=== PATIENT | female | born 1975 | race Two or more races ===

== ENCOUNTER 2018-06-08 19:01 | Emergency (ER) | payer OTHER ==
[~2018-06-08] VITALS: Ht 165.1 cm; Wt 86.2 kg
[2018-06-08] MEDS ORDERED: IBUP200C5 PO (19:10)
--- NOTE | 2018-06-08 19:33 | NUR ---
Patient discharged to home in stable conditon. Written and verbal after care instructions given. Patient verbalizes understanding of instructions. Walked out of ER with no distress noted
== END 2018-06-08 19:37 | disposition home or self-care (01) ==
LOC: ER 19:06
DX: J02.8 Acute pharyngitis due to other specified organisms (principal); B97.89 Other viral agents as the cause of diseases classified elsewhere
CPT/HCPCS: A4663

== ENCOUNTER 2020-06-18 01:42 | Emergency (ER) | payer MEDICAID, OTHER ==
[~2020-06-18] VITALS: Ht 162.6 cm; Wt 90.7 kg
[~2020-06-18 01:42] MED LIST: IBUP200C5 PO
--- NOTE | 2020-06-18 01:45 | NUR ---
Dr. Hurley at bedside for MSE.
[2020-06-18] MEDS ORDERED: ACETAMINOPHEN 325 MG TABLET PO ONE (02:00)
[2020-06-18] MEDS ORDERED: ACETAMINOPHEN ES 500 MG TABLET ONE (02:06)
[2020-06-18 02:09] LABS: BASOPHILS % (AUTO) 0.1 % (0.0-2.0); HEMATOCRIT 27.4 % (31.2-41.9); LYMPHOCYTES # (AUTO) 0.6 K/uL (20.0-40.0); LYMPHOCYTES % (AUTO) 10.5 % (20.5-51.5); MEAN CORPUSCULAR HEMOGLOBIN 24.5 uug (24.7-32.8); MEAN CORPUSCULAR HGB CONC 33 g/dL (32.3-35.6); MEAN CORPUSCULAR VOLUME 74.2 fL (75.5-95.3); MONOCYTES # (AUTO) 0.2 K/uL (2.0-10.0); NEUTROPHILS # (AUTO) 4.9 K/uL (1.8-8.9); NEUTROPHILS % (AUTO) 86.4 % (38.5-71.5); PLATELET COUNT (AUTO) 187 K/uL (179-408); RED BLOOD CELL COUNT(AUTO) 3.69 MIL/uL (3.63-4.92); WHITE BLOOD COUNT (AUTO) 5.7 K/uL (3.8-11.8)
[2020-06-18] MEDS ORDERED: CEFTRIAXONE 1 G in IV DEXTROSE 5% 50 ML IV ONE (02:15)
[2020-06-18] MEDS ORDERED: CEFTRIAXONE 1 G VIAL ONE (02:20)
--- NOTE | 2020-06-18 02:20 | NUR ---
Pt provided urine sample, sent to lab.
[2020-06-18 02:28] LABS: BILIRUBIN,DIRECT 0.2 mg/dL (0.0-0.2); BILIRUBIN,TOTAL 0.4 mg/dL (0.2-1.0); CREATININE 0.8 mg/dL (0.6-1.3); POTASSIUM 3.9 mmol/L (3.5-5.1); TOTAL PROTEIN, SERUM 7.2 g/dL (6.4-8.2)
[2020-06-18 02:34] LABS: *BILIRUBIN,URIN NEGATIVE (NEGATIVE); *BLOOD, URINE 1+ (NEGATIVE); *CLARITY,URINE CLOUDY (CLEAR); *COLOR,URINE YELLOW (YELLOW); *KETONES,URINE NEGATIVE (NEGATIVE); *UROBILINOGEN,URINE 0.2 E.U./dl (NORMAL); LEUKOCYTE ESTERASE ,URINE 3+ (NEGATIVE); NITRITE, URINE NEGATIVE (NEGATIVE); PH,URINE 8.5 (5.0-8.0); UGLUCOSE NEGATIVE (NEGATIVE)
--- NOTE | 2020-06-18 02:39 | NUR ---
Pt out of ER for CT.
[2020-06-18 02:41] LABS: *URINE HCG, QUAL NEGATIVE (NEGATIVE); BACTERIA,URINE MODERATE /HPF (NONE SEEN); WBC,URINE 50-80 /HPF (0-3)
--- NOTE | 2020-06-18 02:53 | NUR ---
Pt back to ER from CT.
--- NOTE | 2020-06-18 04:18 | NUR ---
Patient discharged to home in stable condition. Written and verbal after care instructions given. Patient verbalizes understanding of instructions. Stressed follow up or return to ER for worsening s/s. Patient out of ER with steady gait, no acute signs of distress, VSS, all belongings taken, IV site discontinued, provided copies of diagnostic procedures.
[2020-06-18 04:19] VITALS: BP 111/58
== END 2020-06-18 04:20 | disposition home or self-care (01) ==
LOC: ER 01:44
DX: N12 Tubulo-interstitial nephritis, not specified as acute or chronic (principal); R00.0 Tachycardia, unspecified; D64.9 Anemia, unspecified
CPT/HCPCS: 36415; 74176; 80048; 80076; 81001; 83605; 83690; 84484; 84703; 85025; 87040 ×2; 87077 ×2; 87086; 87186 ×2; 93005; 96374; 99291; J0696; J7060; 70030-TC; A4663; A9150

== ENCOUNTER 2023-11-03 14:44 | Emergency (ER) | payer MEDICAID, OTHER ==
[~2023-11-03] VITALS: Ht 162.6 cm; Wt 88.5 kg
[2023-11-03] MEDS ORDERED: diphenhydrAMINE 50 MG/1 ML VIAL ONE (16:06)
[2023-11-03] MEDS ORDERED: METOCLOPRAMIDE HCL 10 MG/2 ML VIAL ONE (16:07)
[2023-11-03] MEDS ORDERED: KETOROLAC TROMETHAMINE 30 MG INJ ONE (16:07)
[2023-11-03 16:12] LABS: BASOPHILS % (AUTO) 0.5 % (0.0-2.0); EOSINOPHILS % (AUTO) 0.4 % (0.0-7.0); HEMATOCRIT 30.5 % (31.2-41.9); HEMOGLOBIN 9.8 g/dL (10.9-14.3); LYMPHOCYTES # (AUTO) 2.6 K/uL (0.8-4.8); LYMPHOCYTES % (AUTO) 35.2 % (20.5-51.5); MEAN CORPUSCULAR HEMOGLOBIN 23.4 uug (24.7-32.8); MEAN CORPUSCULAR HGB CONC 32 g/dL (32.3-35.6); MEAN CORPUSCULAR VOLUME 72.5 fL (75.5-95.3); MONOCYTES # (AUTO) 0.5 K/uL (0.1-1.30); MONOCYTES % (AUTO) 7.3 % (0.0-11.0); NEUTROPHILS # (AUTO) 4.2 K/uL (1.8-8.9); NEUTROPHILS % (AUTO) 56.6 % (38.5-71.5); PLATELET COUNT (AUTO) 352 K/uL (179-408); RED BLOOD CELL COUNT(AUTO) 4.21 MIL/uL (3.63-4.92); RED CELL DISTRIBUTION WIDTH 17.7 % (12.3-17.7); RETICULOCYTE COUNT 1.2 % (0.5-2.2); WHITE BLOOD COUNT (AUTO) 7.4 K/uL (3.8-11.8)
[2023-11-03] MEDS: IV NS 1000 ML 1,000 ML IV ONE (16:12)
[2023-11-03] MEDS: KETOROLAC TROMETHAMINE 30 MG INJ IVP ONE (16:12)
[2023-11-03] MEDS: METOCLOPRAMIDE HCL 10 MG/2 ML VIAL IV ONE (16:12)
[2023-11-03] MEDS: diphenhydrAMINE 50 MG/1 ML VIAL IV ONE (16:12)
[2023-11-03 16:41] LABS: IRON, SERUM 11 ug/dL (50-175)
[2023-11-03 16:45] LABS: DIFFERENTIAL COMMENT 1
[2023-11-03] MEDS ORDERED: NAPR-1164 PO (17:52)
[2023-11-03] MEDS ORDERED: DIPH25CA83 PO (17:52)
[2023-11-03] MEDS ORDERED: METO-295 PO (17:52)
[2023-11-03] MEDS ORDERED: FERR-56 PO (17:52)
[2023-11-03 18:23] VITALS: BP 112/72; O2SAT 100
== END 2023-11-03 18:23 | disposition home or self-care (01) ==
LOC: ER 14:51
DX: G43.909 Migraine, unspecified, not intractable, without status migrainosus (principal); D50.9 Iron deficiency anemia, unspecified; Z98.890 Other specified postprocedural states; Z79.899 Other long term (current) drug therapy
CPT/HCPCS: 99284; 96374; 96361; 96375; 83550; 85025; 85044; 36415; J1200; J1885; J2765; J7040; 70030-TC; A4606; A4663